=== PATIENT | female | born 1995 ===

== ENCOUNTER → 2021-04-28 12:19 | Outpatient (CLI) | payer OTHER, SELFPAY ==
[2021-04-28 21:34] LABS: COVID19 - ORCAS (NP or Nasal) Negative (Negative)
== END ==
PROVIDERS: PCP Family Medicine; Visit Provider Physician Assistant Medical
DX: M79.10 Myalgia, unspecified site (principal); R05 Cough; R19.7 Diarrhea, unspecified; Z20.822 Contact with and (suspected) exposure to COVID-19
CPT/HCPCS: U0003